=== PATIENT | female | born 1965 | race Caucasian/White ===

== ENCOUNTER 2017-02-25 08:00 | Outpatient (CLI) | payer BC | END 2017-02-25 08:01 | disposition home or self-care (01) | LOC: BICMAMMO 08:00 | PROVIDERS: ATTEND Family Medicine | DX: Z12.31 Encounter for screening mammogram for malignant neoplasm of breast (principal) | CPT/HCPCS: 77063; 77067; G0202 ==

== ENCOUNTER 2017-11-04 09:13 | Outpatient (CLI) | payer BC | END 2017-11-04 09:14 | disposition home or self-care (01) | LOC: BICCT 09:13 | PROVIDERS: ATTEND Internal Medicine Medical Oncology | DX: C64.1 Malignant neoplasm of right kidney, except renal pelvis (principal); K44.9 Diaphragmatic hernia without obstruction or gangrene; Z90.5 Acquired absence of kidney | CPT/HCPCS: 71046; 74177 ==

== ENCOUNTER 2019-01-17 09:13 | Outpatient (CLI) | payer BC ==
--- NOTE | 2019-01-17 10:33 | MRI ---
CERVICAL SPINE WITHOUT CONTRAST: INDICATIONS: Cervical radicular pain. No prior comparison imaging. FINDINGS: Motion artifact limits evaluation. This does obscure reliable assessment of cord signal due to anatom ic distortion. No acute marrow edema, compression fractures or significant subluxation. Disk space he ights are preserved. There is a Schmorl's node, chronic, involving the superior endplate of T1. C1-C2: No significant stenosis. C2-C3: Mild disk osteophyte complex without high grade central canal or foraminal stenosis. C3-C4: No significant central canal or neural foraminal stenosis. C4-C5: No significant central canal or neural foraminal stenosis. C5-C6: Mild disk osteophyte formation with slight effacement of the ventral thecal sac. There is unci evaristo process hypertrophy with mild bilateral neural foraminal narrowing. C6-C7: Disk osteophyte formation with superimposed right subarticular/paracentral disk protrusion whi ch results in mild ventral cord effacement. Mild right neural foraminal stenosis. No significant left foraminal compromise. C7-T1: No significant central canal or neural foraminal stenosis. Mild disk osteophyte is present. IMPRESSION: Limited exam due to motion distortion. There is mild multilevel degenerative change, as outlined guerda rodriguez. POS: [facility]
--- NOTE | 2019-01-17 11:02 | MRI ---
MR OF THE THORACIC SPINE WITHOUT CONTRAST INDICATION: Thoracic back pain TECHNIQUE: Multiplanar multisequence MR images were obtained of the thoracic spine without contrast. Spine count series was provided. COMPARISON: CT the abdomen and pelvis dated November 04, [address] the chest, abdomen and pelvis da palak December 07, 2013. FINDINGS: Bone marrow signal intensity: There is a 7 mm T2 hyperintense, T1 hypointense lesion involving the ri ght lower posterior aspect of the T11 vertebral body. No definite suspicious CT abnormality is seen within this region on the comparison CT the abdomen and pelvis dated November 04, 2017. Spinal alignment: Normal Spinal cord: Normal signal intensity and contour. Paravertebral soft tissues: Normal Vertebral levels: T1-T2: No appreciable central canal or neural foraminal narrowing is evident. T2-T3: There is a mild broad-based disc bulge at T2-T3 without appreciable central canal or neural fo raminal narrowing. T3-T4: No appreciable central canal or neural foraminal narrowing. T4-T5: No appreciable central canal or neural foraminal narrowing. T5-T6: No appreciable central canal or neural foraminal narrowing. T6-T7: No appreciable central canal or neural foraminal narrowing. T7-T8: No appreciable central canal or neural foraminal narrowing. T8-T9: No appreciable central canal or neural foraminal narrowing. T9-T10: No appreciable central canal or neural foraminal narrowing is evident. T10-T11: No appreciable central canal or neural foraminal narrowing is demonstrated. T11-T12: No appreciable central canal or neural foraminal narrowing. T12-L1: No appreciable central canal or neural foraminal narrowing. Additional findings: None. IMPRESSION: 1. Mild spondylosis of the thoracic spine. 2. Small focus of T2 hyperintensity and T1 hypointensity measuring 7 mm within the right posterior in ferior aspect of T11. Given patient's history of prior renal cell malignancy, further evaluation with a whole body bone scan may be helpful to evaluate for possible metastatic disease. No additional suspicious signal abnormality is grossly evident.
--- NOTE | 2019-01-17 11:31 | MRI ---
EXAM: Lumbar spine MRI without contrast. HISTORY: Lumbar radiculopathy low back pain COMPARISON: None FINDINGS: Multiplanar, multisequence MRI examination of the lumbar spine is performed. The conus medullaris region appears unremarkable. No evidence for abnormal marrow signal. Generalized disc osteophytosis and disc degeneration with some facet arthrosis. T12-L1 disc level: Unremarkable. L1-L2 disc level: Central protrusion with indention of the ventral thecal sac and mild central canal stenosis L2-L3 disc level: Minimal diffuse disc bulging with very mild indention of the central thecal sac and a lateral recesses without significant foraminal stenosis. L3-L4 disc level: Mild lateral recess stenosis. L4-L5 disc level: Minimal disc bulging with mild lateral recess and foraminal stenosis. L5-S1 disc level: Unremarkable. IMPRESSION: Multilevel variable severity mostly mild stenotic changes as above.
== END 2019-01-17 09:14 | disposition home or self-care (01) ==
LOC: BICMRI 09:13
PROVIDERS: ATTEND Neurological Surgery
DX: M47.22 Other spondylosis with radiculopathy, cervical region (principal); M54.16 Radiculopathy, lumbar region; M54.6 Pain in thoracic spine; M48.061 Spinal stenosis, lumbar region without neurogenic claudication; M47.814 Spondylosis without myelopathy or radiculopathy, thoracic region; M25.78 Osteophyte, vertebrae
CPT/HCPCS: 72141; 72146; 72148

== ENCOUNTER 2022-07-09 13:33 | Outpatient (CLI) | payer BC | END 2022-07-09 13:34 | disposition home or self-care (01) | LOC: BICMAMMO 13:33 | PROVIDERS: ATTEND Family Medicine | DX: N63.20 Unspecified lump in the left breast, unspecified quadrant (principal); N63.10 Unspecified lump in the right breast, unspecified quadrant | CPT/HCPCS: 77066; G0279 ==